=== PATIENT | male | born 1985 | race Caucasian/White ===

== ENCOUNTER → 2020-05-05 09:07 | Outpatient (CLI) | payer OTHER, SELFPAY ==
--- NOTE | ~2020-05-05 | MR_ITS ---
EXAMINATION: MR knee RT wo con DATE: 05/05/2020 09:55 INDICATION: Generalized right knee pain TECHNIQUE: Magnetic resonance imaging (MRI) of the right knee was performed without intravenous contr ast. Sequences included coronal PD-weighted FSE, coronal PD-weighted FS FSE, sagittal T2-weighted FS E, sagittal PD-weighted FS FSE and axial PD weighted fat saturated FSE. COMPARISON: Right knee radiographs dated 04/28/2020 FINDINGS: Medial compartment: Complex tear of the body and posterior horn of the medial meniscus. The posterior horn appears small which could be due to either displacement or secondary degeneration of the meniscal tissue or sequela of prior partial meniscectomy. There is deep chondral fissuring along the central weightbearing medi al femoral condyle tiny focus of subarticular edema. Heterogeneous cartilage signal with mild chondra l surface irregularity along the posterior aspect of the medial tibial plateau. Lateral compartment: Lateral meniscus is normal. G is cartilage signal suggesting partial thickness fissuring at the media l aspect of the lateral tibial plateau including along the intercondylar eminence. Patellofemoral compartment: Deep chondral ulceration measuring approximately 8 mm medial to lateral and 4-5 mm craniocaudally at the central aspect of the patellar apical ridge without degenerative subchondral changes. There is pa rtial thickness chondral fissuring at the medial patellar facet. Additional partial thickness chondra l ulceration and deep fissuring also without degenerative subchondral changes is most extensive at th e lateral trochlea but also involving portions of the trochlear groove and medial trochlea. Involving greater than 50% of the cartilage thickness. Ligaments and tendons: Posterior cruciate ligament is normal. Anterior cruciate ligament reconstruction with intact appearin g graft. The medial collateral ligament and fibular collateral ligament complex are normal. Sagittal oriented scar at the central aspect of the patellar tendon with old healed osteotomy defect along the anterior margin of the patella consistent with prior patellar tendon autograft harvest. Quadriceps t endon is normal. The visualized medial and lateral hamstring tendons as well as the iliotibial band a re normal. Fluid: Physiologic amount of fluid in the joint space. No loose osteochondral bodies identified. Osseous/other: There is some cystic change at the intercondylar eminence. No fracture or pathologic marrow replacing process. IMPRESSION: 1. Intact appearing anterior cruciate ligament reconstruction with patellar tendon autograft. 2. Complex medial meniscal tear which may be superimposed over change of prior partial meniscectomy w ith small posterior horn. Correlate with surgical history. 3. 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 Reviewed, dictated and finalized at location A. [employer] IMPRESSION: 1. Intact appearing anterior cruciate ligament reconstruction with patellar ten don autograft. 2. Complex medial meniscal tear which may be superimposed over change of prior partial meniscectomy with small posterior horn. Correlate with surgical history . 3. Mild tricompartmental osteoarthritis with moderate to high-grade chondromala yoshi most extensive in the patellofemoral compartment and to a lesser degree rosa ng the central weightbearing medial femoral condyle.
== END ==
PROVIDERS: Visit Provider Nurse Practitioner Family
DX: S83.241A Other tear of medial meniscus, current injury, right knee, initial encounter (principal); M22.41 Chondromalacia patellae, right knee; M17.11 Unilateral primary osteoarthritis, right knee
CPT/HCPCS: 73721

== ENCOUNTER 2023-02-08 12:52 | Emergency (ER) | payer OTHER, BC, SELFPAY ==
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
[2023-02-08 13:12] VITALS: BP 131/69; PULSE 77; RESP 18; TEMP 36.9; O2SAT 100
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
[2023-02-08 16:37] LABS: Basophils Percent Auto 0.5 % (0.2-1.2); Eosinophils Absolute Auto 0.2 K/mm3 (0-0.3); Eosinophils Percent Auto 2.7 % (0-4.4); Hematocrit 43.7 % (42.0-52.0); Hemoglobin 14.7 g/dL (14.0-18.0); Immature Granulocyte Absolute 0.02 K/mm3 (0.00-0.031); Immature Granulocyte Percent A 0.3 % (0-0.5); Lymphocytes Absolute Auto 2.06 K/mm3 (0.9-3.2); Lymphocytes Percent Auto 32.8 % (18.3-44.2); Mean Corpuscular HGB Conc 33.6 g/dl (32-36); Mean Corpuscular Hemoglobin 29.2 pg (26-34); Mean Corpuscular Volume 86.9 fl (80-100); Mean Platelet Volume 9.3 fl (7.4-10.4); Monocytes Absolute Auto 0.4 K/mm3 (0.1-0.6); Monocytes Percent Auto 6.7 % (2.6-8.5); Neutrophils Absolute Auto 3.6 K/mm3 (1.3-6.7); Platelet Count Result 243 k/mm3 (150-375); Red Blood Count 5.03 M/mm3 (4.6-6.20); Red Cell Distribution Width 12.3 % (11.5-14.5); White Blood Count 6.3 K/mm3 (4.5-10.0)
[2023-02-08 16:47] LABS: INR 0.9; Prothrombin Time 12.3 Seconds (11.1-14.7)
[2023-02-08 16:48] LABS: Alanine Aminotransferase 24 U/L (6-50); Albumin Level 4.6 g/dL (3.5-5.1); Alkaline Phosphatase 51 U/L (38-126); Anion Gap 7 mmol/L (8-16); Aspartate Amino Transferase 28 U/L (17-59); Bilirubin,Total 0.5 mg/dL (0.2-1.3); Blood Urea Nitrogen 16 mg/dL (9-20); Calcium 9.2 mg/dL (8.4-10.2); Carbon Dioxide 28 mmol/L (22-30); Chloride 104 mmol/L (98-107); Estimated CRCL calculation 96 ml/min; Estimated Glomerular Filt Rate > 60; Glucose 77 mg/dL (65-110); Partial Thromboplastin Time 28.7 SECONDS (22.3-36.8); Potassium 4.1 mmol/L (3.4-5.0); Sodium 139 mmol/L (137-145)
[2023-02-08 18:53] VITALS: BP 130/70; PULSE 70; RESP 18; O2SAT 100
== END 2023-02-08 18:54 | disposition home or self-care (01) ==
PROVIDERS: Emergency Provider Physician Assistant
DX: S50.02XA Contusion of left elbow, initial encounter (principal); V47.5XXA Car driver injured in collision with fixed or stationary object in traffic accident, initial encounter
CPT/HCPCS: 36415; 71260; 73080; 74177; 80053; 85025; 85610; 85730; 99284; A4565; Q9967

== ENCOUNTER → 2024-07-18 10:01 | Outpatient (REF) | payer OTHER, SELFPAY ==
--- OUTSIDE RECORDS SUMMARY | 2024-07-18 10:13 | XMS_ITS | Continuity of Care Document ---
Author Organization [facility] Address [address] [place] [address] [place] [address] Phone Care Team Providers Care Paperhanger Apprentice Name Role Phone Elias Reddy MD Unavailable Unavailable Allergies, Adverse Reactions, Alerts Substance Reaction Status Criticality No Known Allergies Active No Inform ation Medications Medication Instructions Dosage Effective Dates (start - stop) Status Comments No Drug Therapy Prescribed Procedures Procedure Date PREV VISIT, [facility], AGE 18-39 OFFICE/OUTPATIENT VISIT, [facility] Advance Directives Directive Yes / No Effective Date File Name No Information Encounters Encounter Description Practice Location Reason(s) For Visit Diagnoses Date Provider Providers Copied on Encounter PREV VISIT, NEW, AGE 18-39 [facility], [address] [place], [id number], tel:[phone] [facility] Medicine physical (chief complaint) Encounter for general adult medical exam w abnormal findingsInfectious gastroenteritis and colitis, unspecifiedPain in unspecified foot 6 Barry Griffin. [address] [place], [place], [id number] , [place]. tel:[phone] Referring Provider: Elias Reddy, [address] [place], [place], [id number]. tel:[phone] Family History Family Member Type Diagnosis Age At Onset Father Problem (finding) Alive and well Mother Problem (finding) Alive and well Brother Problem (finding) Alive and well Payers Payer name Insurance type Covered libertarian ID Authoriza tion(s) No Information Social History Type Description Quantity Date Captured Comments Alcohol Use Details Caffeine Use Details Unknown Tobacco Use Status Never smoked tobacco 2015 Smoking Status Never smoker Non-Smoking Tobacco Use Details : No Details Available : No Details Available Sex Male Vital Signs Date / Time: Height Weight BMI Pulse Rate Blood Pressure Temperature Respiratory Rate Body Surface Area Head Circumference BMI percentile Pulse Ox Inhaled Ox 10:47 AM 70.00 in 226.80 lbs 32.5 4 kg/m eter (2) 96 /min 132/82 mm[Hg] 98.6 F 18 /min Chief Complaint And Reason For Visit From encounter dated '12/16/2015 09:15'. physical (chief complaint). Description: Pt needs annual physical. pt c/o suddent onset of burning,sharp pain around low abdomen since last Tuesday. Pt did have nonbloody diarrhea with vomiting. Pt went to ER and CT showed some enteritis. Pt states that his symptoms resolved after 5 days. Pt tried bentyl and zofran which helped. Pt currently denies any symptoms. Pt states that he has chornic foot pain around arch and heel for years. Pt denies any acute injury. Pt did play sports as a child. Pt notices sharp pain whever he gets up from sitting position. Pt denies any injury Plan Of Treatment Date Type Action Status Referral Ordered: Logan Busby (related to Infectious gastroenteritis and colitis, unspecified) ordered Referral Ordered: Podiatry (related to Pain in unspecified foot) ordered Referral Referred To: Logan Busby [id number] [facility]
[address], [phone] Ordered: Referrals: Logan Busby. Evaluate and treat ordered Referral Ordered: Referrals: Podiatry. Evaluate and treat ordered History Of Present Illness Encounter Date Complaint History Of Prese nt Illness physical Pt needs annual physical. pt c/o suddent onset of burning, sharp pain around low abdomen since last Tuesday. Pt did have nonbloody diarrhea with vomiting. Pt went to ER and CT showed some enteritis. Pt states that his symptoms resolved after 5 days. Pt tried bentyl and zofran which helped. Pt currently denies any symptoms. Pt states that he has chornic foot pain around arch and heel for years. Pt denies any acute injury. Pt did play sports as a child. Pt notices sharp pain whever he gets up from sitting position. Pt denies any injury Medications Administered Medication Instructions Dosage Effective Dates (start - stop) Status Comments No Drug Therapy Prescribed Instructions Date Instruction Additional Infor mation Prescribed Diet Educ ation/Lifestyle Education Regarding Diet Related to Dietary Surveillance and Counseling Prescribed Activity and Exercise Education Related to Dietary Surveillance and Counseling Assessments Type Assessment Date assessment Encounter for general adult medi wilbert exam w abnormal findings assessment Infectious gastroenteritis and c olitis, unspecified assessment Pain in unspecified foot 2015 Mental Status Date Cognitive Assessment Orientation - [place] ed to time, place, person, situation.
== END ==
LOC: ANHLAB 10:01
PROVIDERS: PCP Family Medicine; Visit Provider Physician Assistant Surgical
DX: D17.21 Benign lipomatous neoplasm of skin and subcutaneous tissue of right arm (principal)
CPT/HCPCS: 88304

== ENCOUNTER 2024-08-02 12:33 | Outpatient (NON) | payer OTHER, SELFPAY ==
--- OUTSIDE RECORDS SUMMARY | 2024-08-03 12:53 | XMS_ITS | Clinical Summary ---
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 Gender Identity Not on file Sexual Orientation Not on file Obstetrics History Last Filed Vital Signs Vital Sign Reading Time Taken Comments Blood Pressure 136/88 11/06/2022 12:30 AM CDT Pulse 48 11/06/2022 12:30 AM CDT Temperature 36.6 C (97.8 F) 11/05/2022 6:10 PM CDT Respiratory Rate 16 11/05/2022 8:39 PM CDT Oxygen Saturation 98% 11/06/2022 12:30 AM CDT Inhaled Oxygen Concentration - - Weight 93 kg (205 lb) 11/05/2022 6:10 PM CDT Height 180.3 cm (5' 11 ) 11/05/2022 6:10 PM CDT Body Mass Index 28.59 11/05/2022 6:10 PM CDT Plan of Treatment Health Maintenance Due Date Last Done Comments Depression Screening 1986 Hepatitis C Screening 1986 DTaP/Tdap/Td Vaccine (1 - Tdap) 1997 Varicella Vaccines (1 of 2 - 13+ 2-dose series) 1999 Hepatitis B Screening 2004 Regular Well Visit/Exam 18-64 2004 Covid-19 Vaccine (3 - 2023-2 5 season) 2024 02/15/2021, 01/25/2021 Influenza Vaccine (#1) 2024 HPV Vaccines Aged Out No longer eligi ble based on patient's age to complete this topic Pneumococcal vaccine <65 Aged Out No longer eligible based on patient's age to complete [place] [id number] [employer] [place] [address] [employer] CHOICE Care Teams Hand Potter Relationship Specialty Start Date End Date No, Physician PCP - General 11/05/22
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
--- OUTSIDE RECORDS SUMMARY | 2024-08-03 12:53 | XMS_ITS | Referral Summary ---
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
== END 2024-08-02 12:34 | disposition home or self-care (01) ==
LOC: ANHLAB 08-03 12:34
PROVIDERS: Visit Provider Physician Assistant Surgical
DX: D17.1 Benign lipomatous neoplasm of skin and subcutaneous tissue of trunk (principal)
CPT/HCPCS: 88304

== ENCOUNTER 2024-10-05 08:39 | Outpatient (CLI) | payer OTHER, SELFPAY ==
--- NOTE | ~2024-10-05 | MR_ITS ---
EXAMINATION: MR knee LT wo con DATE: 10/05/2024 09:15 INDICATION: Left knee pain TECHNIQUE: Magnetic resonance imaging (MRI) of the left knee was performed without intravenous contra st. Sequences included coronal PD-weighted FSE, coronal PD-weighted FS FSE, sagittal T2-weighted FSE , sagittal PD-weighted FS FSE and axial PD weighted fat saturated FSE. COMPARISON: None. FINDINGS: Medial compartment: Radial tear/partial avulsion at the posterior root of the medial meniscus. Articular cartilage is nor mal. Lateral compartment: Lateral meniscus is normal. Articular cartilage is normal. Patellofemoral compartment: Partial-thickness chondral fissuring which appears to involve at least 50% the cartilage thickness bu t without degenerative subchondral changes at the medial patellar facet, apical ridge and medial aspe ct of the lateral patellar facet. Partial-thickness chondral ulceration involving at least 50% the ca rtilage thickness with additional superimposed chondral fissuring at the lateral trochlea and trochle ar groove. There is some associated subtle underlying cortical irregularity and minimal subarticular edema-like signal change. Ligaments and tendons: Anterior and posterior cruciate ligaments are normal. The medial collateral ligament and fibular wes ateral ligament complex are normal. The extensor mechanism is normal. The visualized medial and later al hamstring tendons as well as the iliotibial band are normal. Fluid: Physiologic amount of fluid in the joint space. No loose osteochondral bodies identified. Osseous/other: There is mild edema and a small intraosseous ganglion cyst underlying the footplate of the posterior root of the medial meniscus. No fracture or pathologic marrow replacing process. IMPRESSION: 1. Radial tear/partial avulsion at the posterior root of the medial meniscus. 2. Mild patellofemoral osteoarthritis with moderate grade patellar and high-grade trochlear chondroma lacia. Reviewed, dictated and finalized at location A. IMPRESSION: 1. Radial tear/partial avulsion at the posterior root of the medial meniscus. 2. Mild patellofemoral osteoarthritis with moderate grade patellar and high-gra de trochlear chondromalacia.
== END 2024-10-05 08:40 | disposition home or self-care (01) ==
PROVIDERS: PCP Family Medicine; Visit Provider Nurse Practitioner Family
DX: S83.242A Other tear of medial meniscus, current injury, left knee, initial encounter (principal); X58.XXXA Exposure to other specified factors, initial encounter; M94.262 Chondromalacia, left knee
CPT/HCPCS: 73721

== ENCOUNTER 2024-11-29 01:23 | Day surgery (SDC) | payer OTHER, SELFPAY ==
[2024-11-27 10:51] VITALS: BMI 30.7
--- NOTE | 2024-11-27 10:57 | PC.NURSE ---
Report to the Outpatient Waiting Room, entrance under the green pavilion located off [facility], at time _1000_ on date _09-67-1254_. Planned Procedure Time: _1200_.? Time changes happen often and if your time is changed the preop area will call you the afternoon before. - You and your visitor will be asked to self-screen and do not enter if you have any COVID symptoms. Please call surgeon if you need to reschedule. - A mask is optional within the hospital at this time. Patients may have clear liquids (water, carbonated beverages, clear teas, apple juice) until 3 hours prior to surgery with a maximum of 20 ounces. - No food from midnight until time of surgery and no smoking, or chewing tobacco (or any form of nicotine). No chewing gum, candy or mints. Take only the following medications with a SIP of water on the morning of surgery: ___None____ DO NOT STOP ANY OF YOUR OTHER PRESCRIPTION MEDICATIONS PRIOR TO SURGERY EXCEPT THE FOLLOWING Hold all vitamins and supplements for 3 days per anesthesiologist. Medications to discontinue per physician Date to take last dose Please no make-up, nail estonian, hairspray, perfume, deodorant, or body powder the day of surgery.? No jewelry (including any body piercings) or valuables the day of surgery, leave them at home.? Please take a shower or bath the night before, or the morning of, surgery with an antibacterial soap.? Wear comfortable, loose fitting clothing.? - Jewelry must be removed prior to entering the operating room.? Rings and piercings that are not removed may be cut off. - The hospital will not accept responsibility for valuables.? - Please leave all valuables, including medications, at home the day of surgery. If you are going home after surgery, a licensed cdl driver must drive you home.? - NO public transportation without another adult if you receive anesthesia. - We recommend that an adult stay with you for 24 hours following discharge. - We also recommend that you do not drive, make important decision, drink alcoholic beverages, or take any drugs that were not prescribed by your health care provider for at least 24 hours after your discharge time. Follow any additional instructions given to you from your surgeon. Telephone instructions given to __Gabe___and asked if any additional questions and then verbalized understanding. Patient advised to call surgeon office or pre surgery nurse liaison [phone] if any additional questions.
--- NOTE | 2024-11-27 15:52 | PM.IMHP ---
H&P: HPI History of Present Illness Date/Time: 11/27/24 15:52 Chief Complaint: Left knee pain Narrative: left knee injury 4 months ago, twisting injury to left knee when running. Catching and popping of the knee. Unrelieved with physical therapy, anti-inflammatories, activity modification. MRI shows medial meniscus tear. Review of Systems Constitutional: Constitutional: Denies fever(s) Eyes: Eyes: Denies blurry vision ENT: Reports Normal hearing present Cardiovascular: Cardiovascular: Denies chest pain and Denies dyspnea Respiratory: Respiratory: Denies dyspnea and Denies wheezing Gastrointestinal: Gastrointestinal: Denies abdominal pain Genitourinary: Genitourinary: Denies urinary urgency Musculoskeletal: Musculoskeletal: Reports as per HPI and Denies numbness Integumentary/Breasts: Skin/Breast: Denies changing lesions and Denies sores Neurologic: Reports Normal hearing present, Denies behavioral changes, Denies confusion, Denies numbness and Denies convulsions Psychiatric: Psychiatric: Denies behavioral changes, Denies confusion and Denies hallucinations Endocrine: Endocrine: Denies heat intolerance Hematologic/Lymphatic: Hematologic/Lymphatic: Denies easy bleeding Allergic/Immunologic: Allergic/Immunologic: Denies wheezing PMFSH Past Medical History Medical History Medial meniscus tear Left knee injury Left knee pain Injury of right knee Multiple lipomas Family history of prostate cancer in father Lateral meniscus tear Surgical History Surgical History History of repair of ACL 2006 [place] Rt knee Dr. Nasc[place] in [place] Family History Family History Father Cerebrovascular accident Unknown Depression Brain tumor Stokers' cramp Arthritis Mother Depression Anxiety Sibling Malignant neoplasm metastatic to breast Social History Social History Smoking status: Never smoker Alcohol intake: current Alcohol use details: 5 per month Substance use: never Substance use type: does not use Do You Feel Safe in your Home?: Yes Lack of Transportation: No Lack of Food: Never True Current Housing: I Have Housing Concerned About Future Housing: No Difficulty Paying Gas/Electric Bills: No Difficulty Paying for Meds: No Currently Unemployed: No Education: Bachelor's Degree Difficulty w/ Childcare or Family Care: No Living arrangements: with family Gender identity (if verbalized by the patient): Male Spiritual care concerns: No Meds Home Medications and Allergies Home Medications ?Medication ?Instructions ?Recorded ?Confirmed ?Type No Home Medications 07/05/24 11/27/24 History Allergies Allergy/AdvReac Type Severity Reaction Status Date / Time No Known Allergies Allergy Mild Verified 11/27/24 10:51 Exam Const: General: healthy appearing; No in distress or confusion Orientation/consciousness: oriented to person, oriented to place, oriented to time and No confusion HENMT: Head: normal to inspection, normocephalic and atraumatic Eyes: Conjunctivae: conjunctivae normal Sclera: sclerae normal Neck: Neck: supple and nontender Resp: Effort & Inspection: normal respiratory effort and no audible wheezes Cardio: Rate: regular rate Rhythm: regular rhythm Skin: General skin exam: no rashes or lesions noted Neuro: General: oriented to person, oriented to place, oriented to time and No confusion Extrem: Right upper extremity: normal to inspection Left upper extremity: normal to inspection Right lower extremity: hip/thigh Details: normal ROM; no tenderness, knee Details: normal to inspection, normal ROM, knee ligament exam normal Details: anterior drawer test normal, posterior drawer test normal, valgus stress test normal, varus stress test normal and Angi?s test normal and Michael's Test Details: negative medially and laterally; no tenderness and no swelling and foot Details: normal capillary refill, toes with normal ROM, vascular exam Details: dorsalis pedis pulse present and motor-sensory exam Details: light-touch normal; no tenderness; no edema Left lower extremity: normal to inspection, normal capillary refill, hip/thigh Details: normal ROM; no tenderness, knee Details: tenderness Location: of the patella, of the medial joint line and of the infrapatellar area, swelling Location: of the infrapatellar area (mild), abnormal ROM (active extension -10, flexion 110), knee ligament exam normal Details: anterior drawer test normal, posterior drawer test normal, valgus stress test normal, varus stress test normal and Angi's test normal, Michael's Test Details: negative laterally and positive medially and crepitus Location: at the patella (mild) and foot Details: toes with normal ROM, vascular exam Details: dorsalis pedis pulse present and normal capillary refill and motor-sensory exam light-touch normal; no tenderness Psych: Affect: normal affect Assessment and Plan Assessment and plan (1) Medial meniscus tear: Qualifiers: Tear current or old: current Encounter type: subsequent encounter Meniscus tear of knee type: complex Laterality: left Qualified Code(s): S83.232D - Complex tear of medial meniscus, current injury, left knee, subsequent encounter Code(s): S83.249A - Other tear of medial meniscus, current injury, unspecified knee, initial encounter Status: Acute Assessment and Plan: Patient seen and examined. X-ray and MRI reviewed of the left knee. Posterior horn medial meniscus tear with involvement of the root. Patient desires operative treatment. Discussed nonoperative and operative treatment options with the patient. Risks and benefits of each as well as alternatives were reviewed. All of the patient's questions were answered. The risks of surgery reviewed including but not limited to: Neurovascular damage, wound complication, infection, blood clot, pulmonary embolus, stroke, myocardial infarction, and anesthetic risks up to and including . Continued pain and possible dysfunction were explained. Specific risks of the procedure including later recurrence of deformity. No guarantees were offered. If hardware used, discussed risk of failure/ breakage and possible need for removal. If complications occur, the patient understands the need for further treatment, possible further surgery. Patient verbalizes understanding and wishes to proceed. PLAN: Left knee arthroscopy with debridement, partial meniscectomy, chondroplasty/ synovectomy, proceed as indicated.
[2024-11-29] VITALS (10 sets, daily range): BP systolic 105–122; BP diastolic 69–87; PULSE 53–91; RESP 10–18; TEMP 36.6–36.8; O2SAT 99–100
--- OUTSIDE RECORDS SUMMARY | 2024-11-29 01:26 | XMS_ITS | Continuity of Care Document ---
Author Organization [facility] Address [address] [place] [address] Phone Care Team Providers [facility] Consultant Name Role Phone Elias Reddy MD Unavailable Unavailable Allergies, Adverse Reactions, Alerts Substance Reaction Status Criticality No Known Allergies Active No Inform ation Medications Medication Instructions Dosage Effective Dates (start - stop) Status Comments No Drug Therapy Prescribed Procedures Procedure Date PREV VISIT, [facility], AGE 18-39 OFFICE/OUTPATIENT VISIT, [facility] Advance Directives Directive Yes / No Effective Date File Name No Information Encounters Encounter Description Practice Location Reason(s) For Visit Diagnoses Date Provider Providers Copied on Encounter PREV VISIT, NEW, AGE 18-39 [facility], [address], [id number], tel:[phone] [facility] physical (chief complaint) Encounter for general adult medical exam w abnormal findingsInfectious gastroenteritis and colitis, unspecifiedPain in unspecified foot [address] [place], [place], [id number] , [place]. tel:[phone] Referring Provider: Elias Reddy, [email or web address] [place], [place], [id number]. tel:[phone] Family History Family Member Type Diagnosis Age At Onset Father Problem (finding) Alive and well Mother Problem (finding) Alive and well Brother Problem (finding) Alive and well Payers Payer name Insurance type Covered republican ID Authoriza tion(s) No Information Social History [...] foot) ordered Referral Referred To: Logan Busby [address] [facility]
[address], [phone] Ordered: Referrals: Logan Busby. Evaluate and treat [...] Mental Status Date Cognitive Assessment Orientation - Holly ed to time, place, person, situation.
--- OUTSIDE RECORDS SUMMARY | 2024-11-29 01:26 | XMS_ITS | Data Portability ---
Author Organization [place] [facility] [employer] [place] Address [address] [place] [address] Assessment No assessment recorded. Plan of Treatment Reminders Order Date Submit Date Provider Last Modified By Organization Details Last Modified Time Details Appointments None recorded. Lab None recorded. Referral None recorded. Procedures None recorded. Surgeries None recorded. Imaging None recorded. Medication Orders cephalexin 500 mg capsule 2024 025 [facility] [place], [address], 23:49:35 mupirocin 2 % topical ointment 2024 025 [facility] [place], [address], 5 23:49:34 Patient TargetsNo targets recorded. Patient InstructionsNo instructions recorded. Reason for Referral None Reported. Medical Equipment None Reported. Allergies No known drug allergies Medications Name Sig Start Date Stop Date Status Note LastModified by Organization Details LastModified Time cephalexin 500 mg capsule Take 1 capsule every 6 hours by oral route for 7 days. 025 active Not Available Not Available Not Avai lable mupirocin 2 % topical ointment APPLY A SMALL AMOUNT TO THE AFFECTED AREA BY TOPICAL ROUTE 3 TIMES PER DAY 025 active Not Available Not Available Not Avai lable Vitals None Recorded Social History None recorded. Functional Status None recorded. Mental Status None recorded. Family History Nothing Reported. Medical History No medical history recorded. Past Encounters Encounter ID Performer Location Encounter Start Date Encounter Closed Date Diagnosis/Indication Diagnosis SNOMED-CT Code Diagnosis ICD10 Code Diagnosis Note [id number] Delvin Valdes MD [facility] [address] [place] [address] 06/23/2024 23:42:26 06/24/2024 05:49:06 Paronychia of finger of left hand [id number] L03.012 will start on bactroban + keflex. - discussed soaking in warm water and hibaclens. Health Concerns Section Related Observation LastModified by Organization Detai ls LastModified Time None Recorded Concern Status LastModified by Organization Details LastModified Time None Recorded Advance Directives Directive None Recorded Payers Insurance Date Sequence Insurance Name Policy Number Policy Jurado Covered Member ID Jurado Member ID Guarantor Name 07/18/2024 1 [facility] [id number] Elijah Adonis [id number] Elijah Adonis 06/23/2024 [employer] [id number] Elijah Washta [id number] Elijah Washta 06/23/2024 1 *SELF PAY* Ga briel Adonis 06/23/2024 2 [facility] [id number] Elijah Washta [id number] Elijah Adonis 06/23/2024 3 *SELF PAY* [id number] Elijah Washta [id number] Elijah Washta Notes Date Note Type Note Provider Name and Address Organization Details Recorded Time 06/23/2024 text/html Patient name , location, and phone number confirmed. Limitations of telemedicine evaluations reviewed, all questions answered, and verbal consent obtained to treat via secure video telemedicine interaction. Clinician attests that the clinician is physically located in the following state at the time of the visit: [place] Patient's current location is: home address on file (home/workplace/ot her address) in [place] (state) infection on finger - left index finger - symptoms since tuesday -no fever - no history of MRSA - tried draining it, tried to keep it clean - no medication allergies. Delvin Valdes MD [address] [facility] [address], [place], [address], [place] [facility] 06/23/2024 23:53:13
--- OUTSIDE RECORDS SUMMARY | 2024-11-29 01:26 | XMS_ITS | Clinical Summary ---
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
--- OUTSIDE RECORDS SUMMARY | 2024-11-29 01:26 | XMS_ITS | Referral Summary ---
Author Organization 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
[2024-11-29] MEDS: ACETAMINOPHEN 500 MG TABLET 1000 MG PO (10:20)
[2024-11-29] MEDS: LACTATED RINGERS 1,000 ML 30 ML IV CONT ×2 (10:20→13:18)
[2024-11-29] MEDS: KETOROLAC 15 MG/ML VIAL (*BKC) IV PUSH (10:30)
--- NOTE | 2024-11-29 10:40 | WPDANESEPPF ---
Anes - Initial Pre Proc Eval Procedure: Operation Date: 11/29/24 12:00 Proposed Procedures p Left Knee Arthroscopy, Debride Meniscus, Synovectomy, Chondroplasty, Proceed As Indicated - Minor Tirado MD Date/Time: 11/29/24 10:40 Surgeon: Minor Tirado MD Pre Op Diagnosis: left knee pain,medial meniscus tear,chondromylasia Patient Data Age: 39 Gender: M Height: 1.8 m Weight: 104.7 kg Last Vital Signs Temp 36.8 C 11/29/24 10:10 Pulse 69 11/29/24 10:10 Resp 14 11/29/24 10:10 BP 113/80 11/29/24 10:10 Pulse Ox 99 11/29/24 10:10 O2 Del Method Room Air 11/29/24 10:10 Allergies Allergy/AdvReac Type Severity Reaction Status Date / Time No Known Allergies Allergy Mild Verified 11/29/24 10:35 Home Medications ?Medication ?Instructions ?Recorded ?Confirmed ?Type No Home Medications 07/05/24 11/27/24 History Patient hx anesthesia problems: none Family hx anesthesia problems: none Results Review: All pre-operative results and documents have been reviewed as part of the pre-operative evaluation. [facility] Past Medical History Medical History Medial meniscus tear Left knee injury Left knee pain Injury of right knee Multiple lipomas Family history of prostate cancer in father Lateral meniscus tear Surgical History Surgical History History of repair of ACL 2006 to the Rt knee Dr. Nascimento in [place] Family History Family History Father Cerebrovascular accident Unknown Depression Brain tumor Stokers' cramp Arthritis Mother Depression Anxiety Sibling Malignant neoplasm metastatic to breast Social History Social History Smoking status: Never smoker Alcohol intake: current Alcohol use details: 5 per month Substance use: never Substance use type: does not use Do You Feel Safe in your Home?: Yes Lack of Transportation: No Lack of Food: Never True Current Housing: I Have Housing Concerned About Future Housing: No Difficulty Paying Gas/Electric Bills: No Difficulty Paying for Meds: No Currently Unemployed: No Education: Bachelor's Degree Difficulty w/ Childcare or Family Care: No Living arrangements: with family Gender identity (if verbalized by the patient): Male Spiritual care concerns: No Anes - Eval Final PreProcedure Day of Procedure 11/29/24 10:40 Patient weight: obese Heart: regular rate and rhythm Lungs: clear to auscultation Airway: Mallampati scale class II Neurological: alert and oriented Last oral intake: >/= 8 hours ASA classification: II Emergent: no Anesthetic plan: proceed Anesthesia type and monitoring: general LMA and standard monitoring Results Review: All pre-operative results and documents have been reviewed as part of the pre-operative evaluation. Informed Consent: The patient's anesthetic plan and its attendant risks and benefits were discussed with the patient/family/POA. Questions were solicited and answers provided to the satisfaction of the patient/family/POA.
--- NOTE | 2024-11-29 11:07 | WPDHPUPDATE1 ---
History and Physical Update Update Date/Time: 11/29/24 11:07 History and Physical has been reviewed, including an updated exam of the patient. There are NO changes in the patient's condition. Risks, benefits, and alternatives have been discussed and questions answered. Patient agrees to proceed with procedure.
[2024-11-29] MEDS: ceFAZolin 2 GM/D5W 50 ML 2 GM/50 ML BAG IVPB (11:50)
[2024-11-29] MEDS: BUPIVACAINE/EPINEPHRINE 0.5% 50 ML VIAL 20 ML INFILTRATE (11:50)
--- NOTE | 2024-11-29 13:24 | P.OP_ITS ---
Procedure Note - Detailed Date of Procedure 11/29/24 Pre-op Diagnosis left knee pain,medial meniscus tear,chondromylasia, synovitis Post-op Diagnosis Same Procedure Performed Left knee arthroscopy with debridement, partial medial meniscectomy, synovectomy of the medial lateral gutter, anterior fat pad and patellofemoral joint, chondroplasty patellofemoral joint and medial femoral condyle. 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 MRI shows medial meniscus tear and chondromalacia. He has failed conservative treatment physical therapy and cortisone injections. Presents for operative treatment. Findings Left knee bucket-handle tear of the posterior horn of the medial meniscus, extensive synovitis involving medial and lateral gutter with hypertrophic anterior fat pad and impingement in the patellofemoral space, grade 2 chondromalacia patella, grade 4 chondromalacia of the femoral trochlea, grade 2 chondromalacia medial femoral condyle. ACL and PCL, lateral meniscus and lateral compartment intact. Description of Procedure Informed consent given by patient. Operative extremity marked in preoperative holding area. Patient received intravenous antibiotics. Patient brought to operating room and underwent general anesthetic by anesthesia team. Positioned supine on operating room table. Left leg placed into a posterior thigh leg arguelles. Foot of the table dropped to 90? and right leg padded out of the field. Time-out performed confirming patient, site of surgery and plan. Left knee prepped and draped in usual sterile surgical fashion using ChloraPrep skin solution. Standard arthroscopic portals made by using a 11 blade knife for the anterior lateral portal 1st. Capsule penetrated bluntly. Camera and inflow started. The below operative findings noted. Intra-articular visualization used to position the anterior medial portal using 22 gauge spinal needle. A 11 blade knife used for the skin and blunt penetration of the capsule. 4.7 millimeter arthroscopic shaver introduced and partial medial meniscectomy of the loose and torn portion performed. Edge of meniscus completed with arthroscopic Wand. Arthroscopic Wand used to perform chondroplasty of the patellofemoral articulation and the medial femoral condyle. There is extensive wear on the femoral trochlea through most of the trochlea and extending over to the lateral condyle. This was debrided with the arthroscopic Wand and the shaver and finished with the Wand. Shaver reintroduced and a synovectomy performed of the anterior fat pad and extensive synovium as well as medial and lateral plica and medial and lateral gutters. The loop hypertrophic synovium which was impinging in the patellofemoral space was excised. Bleeding points coagulated with Wand. Knee inspected, no loose pieces noted. 1 liter of irrigant infused and suction out. Arthroscopic cannulas removed. Skin closed with 4 nylon interrupted suture. Local anesthetic with 0.25% Marcaine. Sterile dressing applied. Patient awoken from anesthesia, extubated and taken to recovery room in stable condition. All sponge needle and instrument counts correct at the end of the case. Implants None Estimated Blood Loss 5 Tourniquet Time Total Tourniquet Time: 0 Drains No Packing No Pathology None sent Complications None Condition Stable Disposition PACU [facility] Billing Surgery - Charge Forward: Surgery Billing ([id number], [id number], [id number])
== END 2024-11-29 15:15 | disposition home or self-care (01) ==
PROVIDERS: PCP Family Medicine; Visit Provider Orthopaedic Surgery
PROC: (CPT 29870; principal; 2024-11-29 12:00)
DX: S83.212A Bucket-handle tear of medial meniscus, current injury, left knee, initial encounter (principal); M65.862 Other synovitis and tenosynovitis, left lower leg; M94.262 Chondromalacia, left knee; X50.0XXA Overexertion from strenuous movement or load, initial encounter; E66.9 Obesity, unspecified; Z68.32 Body mass index [BMI] 32.0-32.9, adult
CPT/HCPCS: 29881; 29876; A9270; J0690; J1885; J2003; J2250; J2405; J2704; J3010; J7120